=== PATIENT | female | born 1975 | race Caucasian/White ===

== ENCOUNTER → 2022-08-18 | Outpatient (REF) ==
[~2022-08-18] MED LIST: ABIL1TAB13 PO; CYMB60CA4 PO; FLOM0.4C39 PO; KETO10TAB PO; LABE200T5 PO; LASI40TA9 PO; NITR1CAP11 PO; PERCOCET PO; POTA-151 PO; RAMI1CAP26 PO
[2022-08-18 12:24] LABS: RSV AMPLIFICATION NEGATIVE (NEGATIVE)
== END ==
LOC: M LAB 10:56
PROVIDERS: ATTEND Family Medicine
DX: Z00.00 Encounter for general adult medical examination without abnormal findings (principal)